=== PATIENT | female | born 1965 | race Caucasian/White ===

== ENCOUNTER → 2018-01-04 | Outpatient (CLI) | payer OTHER ==
[~2018-01-04] MED LIST: AMBIEN 5 MG TABL5 M1; ATIVAN0.5 M1; BENTYL20 MG PO; BUPROPION XL300 MG; CIPROFLOXACIN500 M1 PO; CLONAZEPAM 1 MG1 M1 PO; CLONAZEPAM PO; FLAGYL500 MG PO; LITHIUM CARBON600 MG PO; LUNESTA3 MG PO; NEURONTIN600 MG; PRILOSEC20 MG; REMERON15 MG PO; VISTARIL 25 MG25 M1 PO; WELCHOL 625 MG625 M1; WELLBUTRIN XL300 M1
== END ==
LOC: M.RAD 13:37
DX: M16.11 Unilateral primary osteoarthritis, right hip (principal); M54.12 Radiculopathy, cervical region

== ENCOUNTER 2018-06-09 03:29 | Emergency (ER) | payer OTHER ==
[~2018-06-09] VITALS: Ht 162.6 cm; Wt 63.5 kg
[~2018-06-09 03:29] MED LIST changes: +LITHIUM CARBON300 M3 PO; -LITHIUM CARBON600 MG PO
[2018-06-09] MEDS ORDERED: GABAPENTIN 100100 MG PO (03:38)
[2018-06-09] MEDS ORDERED: VITAMIN D1000 UNIT PO (03:39)
[2018-06-09] MEDS ORDERED: FLEXERIL PO (04:53)
[2018-06-09] MEDS ORDERED: NORCO 7.5-3251 EACH PO (04:53)
[2018-06-09 06:12] VITALS: BP 109/59
== END 2018-06-09 06:12 | disposition home or self-care (01) ==
LOC: M.ERS 03:29
DX: M25.551 Pain in right hip (principal); Z90.710 Acquired absence of both cervix and uterus; Z88.8 Allergy status to other drugs, medicaments and biological substances

== ENCOUNTER → 2018-06-24 | Outpatient (CLI) | payer OTHER ==
[~2018-06-24] MED LIST changes: +FLEXERIL PO; +GABAPENTIN 100100 MG PO; +NORCO 7.5-3251 EACH PO; +VITAMIN D1000 UNIT PO
== END ==
LOC: M.CT 15:44
DX: M16.11 Unilateral primary osteoarthritis, right hip (principal); M25.751 Osteophyte, right hip; M25.451 Effusion, right hip